=== PATIENT | female | born 1970 | race Caucasian/White ===

== ENCOUNTER 2022-12-19 08:42 | Day surgery (SDC) | payer BC, OTHER ==
[2022-12-15 17:01] VITALS: BMI 34.3
[2022-12-19 11:37] VITALS: RESP 20; TEMP 97.2
[2022-12-19 12:00] VITALS: BP 117/78; PULSE 74
== END 2022-12-19 12:00 | disposition home or self-care (01) ==
LOC: FASU-ENDO 08:42
PROVIDERS: ATTEND Internal Medicine Gastroenterology
PROC: 0DBM8ZX Excision of Descending Colon, Via Natural or Artificial Opening Endoscopic, Diagnostic (ICD-10-PCS; principal; 2022-12-19 10:36)
DX: Z12.11 Encounter for screening for malignant neoplasm of colon (principal); D12.4 Benign neoplasm of descending colon
CPT/HCPCS: 81025; 88305-TC